=== PATIENT | female | born 1950 | race Caucasian/White ===

== ENCOUNTER 2020-12-30 17:42 | Inpatient (IN) ==
[2020-12-30] MEDS ORDERED: Acetaminophen 325 MG TABLET PO PRN (19:46)
[2020-12-30] MEDS ORDERED: D5% in Water 1,000 ML IVC PRN (19:46)
[2020-12-30] MEDS ORDERED: Dextrose Gel 15 GM/37.5 ML TUBE PO PRN ×2 (19:46)
[2020-12-30] MEDS ORDERED: *HR* Dextrose 50 % in Water (Syg) 50 ML SYRINGE IVP PRN (19:46)
[2020-12-30] MEDS: Apixaban 5 MG TABLET PO SCH (20:41)
[2020-12-30] MEDS: Insulin LISPRO 300 UNITS/3 ML VIAL SUBQ SCH (20:41)
[2020-12-31] MEDS: Apixaban 5 MG TABLET PO SCH ×2 (04:16→16:34)
[2020-12-31 06:09] LABS: Basophils # 0.1 K/mcL (0.0-0.2); Basophils % 0.6 %; Eosinophils # 0.3 K/mcL (0.0-0.6); Eosinophils % 2.8 %; Hematocrit 29.4 % (35.3-44.9); Hemoglobin 8.5 g/dL (11.5-15.4); Immature Granulocytes % 0.4 % (0-4); Lymphocytes # 2.1 K/mcL (0.6-4.6); Lymphocytes % 22.9 %; Mean Corpuscular HGB Conc 28.9 g/dL (31.6-35.5); Mean Corpuscular Hemoglobin 21.9 pg (28.0-33.3); Mean Corpuscular Volume 75.6 fL (83.0-100.0); Mean Platelet Volume 10.2 fL (9.4-12.4); Monocytes # 0.8 K/mcL (0.0-1.3); Neutrophils # 6.1 K/mcL (1.6-8.9); Platelet Count 568 K/mcL (140-400); Red Blood Count 3.89 M/mcL (3.82-4.97); Red Cell Distribution Width 26.4 % (11.5-14.5); Segmented Neutrophils % 65.3 %; White Blood Count 9.3 K/mcL (4.3-11.1)
[2020-12-31 06:24] LABS: BUN/Creatinine Ratio 20 (6-26); Blood Urea Nitrogen 10 mg/dL (8-23); Calcium 8.6 mg/dL (8.6-10.3); Carbon Dioxide 29 mEq/L (23-29); Chloride 101 mEq/L (98-107); Glucose 165 mg/dL (70-105); Osmolality,Calculated 285 (280-300); Potassium 4.3 mEq/L (3.5-5.1); Sodium 136 mEq/L (136-145); eGFR For African Americans > 60 (> 60); eGFR For Non-African Americans > 60 (> 60)
[2020-12-31 07:37] LABS: Hypochromasia Present (Not Present)
[2020-12-31 07:38] LABS: Microcytosis Present (Not Present)
[2020-12-31] MEDS: amLODIPine 5 MG TABLET PO SCH (08:21)
[2020-12-31] MEDS: *HR* GlipiZIDE XL (24 HR) 10 MG TABLET PO SCH (08:28)
[2020-12-31] MEDS: Insulin LISPRO 300 UNITS/3 ML VIAL SUBQ SCH ×4 (08:28→20:52)
[2020-12-31] MEDS: *HR* Metformin 500 MG TABLET PO SCH ×2 (08:28→16:35)
[2020-12-31] MEDS: Linagliptin [Tradjenta] 5 MG Tablet PO SCH (08:29)
[2021-01-01] MEDS: Apixaban 5 MG TABLET PO SCH ×2 (04:56→17:11)
[2021-01-01] MEDS: Insulin LISPRO 300 UNITS/3 ML VIAL SUBQ SCH ×4 (08:27→22:30)
[2021-01-01] MEDS: amLODIPine 5 MG TABLET PO SCH (08:27)
[2021-01-01] MEDS: Linagliptin [Tradjenta] 5 MG Tablet PO SCH (08:28)
[2021-01-01] MEDS: *HR* GlipiZIDE XL (24 HR) 10 MG TABLET PO SCH (08:35)
[2021-01-01] MEDS: *HR* Metformin 500 MG TABLET PO SCH ×2 (08:35→16:34)
[2021-01-02] MEDS: Apixaban 5 MG TABLET PO SCH ×2 (04:42→16:48)
[2021-01-02 07:17] LABS: Basophils # 0.1 K/mcL (0.0-0.2); Basophils % 0.8 %; Eosinophils # 0.3 K/mcL (0.0-0.6); Eosinophils % 3.3 %; Hemoglobin 8.7 g/dL (11.5-15.4); Immature Granulocytes % 0.4 % (0-4); Lymphocytes # 2.2 K/mcL (0.6-4.6); Lymphocytes % 23.5 %; Mean Corpuscular Volume 75.8 fL (83.0-100.0); Mean Platelet Volume 10.3 fL (9.4-12.4); Monocytes # 0.9 K/mcL (0.0-1.3); Monocytes % 9.3 %; Neutrophils # 5.8 K/mcL (1.6-8.9); Platelet Count 573 K/mcL (140-400); Red Blood Count 3.96 M/mcL (3.82-4.97); Red Cell Distribution Width 26.1 % (11.5-14.5); Segmented Neutrophils % 62.7 %; White Blood Count 9.3 K/mcL (4.3-11.1)
[2021-01-02 07:32] LABS: Chol/HDL Ratio 5.1 (0-4.9)
[2021-01-02] MEDS: Insulin LISPRO 300 UNITS/3 ML VIAL SUBQ SCH ×4 (08:03→19:59)
[2021-01-02] MEDS: *HR* Metformin 500 MG TABLET PO SCH ×2 (08:20→16:48)
[2021-01-02] MEDS: Linagliptin [Tradjenta] 5 MG Tablet PO SCH (08:20)
[2021-01-02] MEDS: amLODIPine 5 MG TABLET PO SCH (08:20)
[2021-01-02] MEDS: *HR* GlipiZIDE XL (24 HR) 10 MG TABLET PO SCH (08:21)
[2021-01-02 19:13] LABS: % Iron Saturation 4 % (15-50); Iron 12 mcg/dL (50-170); Transferrin 235 mg/dL (203-362)
[2021-01-02 22:18] LABS: Folate 17.6 ng/mL (3.0-16.0)
[2021-01-03 04:48] LABS: Basophils # 0.1 K/mcL (0.0-0.2); Basophils % 0.8 %; Eosinophils # 0.3 K/mcL (0.0-0.6); Eosinophils % 3.6 %; Hematocrit 30.5 % (35.3-44.9); Hemoglobin 8.9 g/dL (11.5-15.4); Immature Granulocytes % 0.4 % (0-4); Lymphocytes # 2.1 K/mcL (0.6-4.6); Lymphocytes % 23.2 %; Mean Corpuscular HGB Conc 29.2 g/dL (31.6-35.5); Mean Corpuscular Hemoglobin 22.2 pg (28.0-33.3); Mean Corpuscular Volume 76.1 fL (83.0-100.0); Mean Platelet Volume 10.8 fL (9.4-12.4); Monocytes # 0.8 K/mcL (0.0-1.3); Monocytes % 8.4 %; Neutrophils # 5.7 K/mcL (1.6-8.9); Platelet Count 606 K/mcL (140-400); Red Blood Count 4.01 M/mcL (3.82-4.97); Red Cell Distribution Width 25.5 % (11.5-14.5); Segmented Neutrophils % 63.6 %
[2021-01-03 04:54] LABS: Anisocytosis 1+ (Not Present); Platelet Estimate Increased (Normal)
[2021-01-03 05:01] LABS: BUN/Creatinine Ratio 23 (6-26); Blood Urea Nitrogen 11 mg/dL (8-23); Carbon Dioxide 27 mEq/L (23-29); Chloride 104 mEq/L (98-107); Glucose 122 mg/dL (70-105); Osmolality,Calculated 289 (280-300); Potassium 4.4 mEq/L (3.5-5.1); Sodium 139 mEq/L (136-145); eGFR For African Americans > 60 (> 60); eGFR For Non-African Americans > 60 (> 60)
[2021-01-03] MEDS: Apixaban 5 MG TABLET PO SCH ×2 (05:09→16:53)
[2021-01-03] MEDS: Insulin LISPRO 300 UNITS/3 ML VIAL SUBQ SCH ×4 (07:38→19:47)
[2021-01-03] MEDS: Linagliptin [Tradjenta] 5 MG Tablet PO SCH (07:59)
[2021-01-03] MEDS: *HR* Metformin 500 MG TABLET PO SCH ×2 (08:00→16:54)
[2021-01-03] MEDS: *HR* GlipiZIDE XL (24 HR) 10 MG TABLET PO SCH (08:00)
[2021-01-03] MEDS: amLODIPine 5 MG TABLET PO SCH (08:00)
[2021-01-03] MEDS ORDERED: Iron Sucrose Complex 250 MG in 0.9 % Sodium Chloride 250 ML IVPB SCH (09:00)
[2021-01-04] MEDS: Apixaban 5 MG TABLET PO SCH ×2 (04:51→16:58)
[2021-01-04 05:21] LABS: Basophils # 0.1 K/mcL (0.0-0.2); Basophils % 0.9 %; Eosinophils # 0.3 K/mcL (0.0-0.6); Eosinophils % 3.3 %; Hematocrit 31.5 % (35.3-44.9); Hemoglobin 9.1 g/dL (11.5-15.4); Immature Granulocytes % 0.6 % (0-4); Lymphocytes # 2.8 K/mcL (0.6-4.6); Lymphocytes % 26.5 %; Mean Corpuscular HGB Conc 28.9 g/dL (31.6-35.5); Mean Corpuscular Volume 76.1 fL (83.0-100.0); Mean Platelet Volume 10.8 fL (9.4-12.4); Monocytes # 0.9 K/mcL (0.0-1.3); Neutrophils # 6.2 K/mcL (1.6-8.9); Platelet Count 573 K/mcL (140-400); Red Blood Count 4.14 M/mcL (3.82-4.97); Red Cell Distribution Width 25.2 % (11.5-14.5); Segmented Neutrophils % 59.7 %; White Blood Count 10.4 K/mcL (4.3-11.1)
[2021-01-04 05:25] LABS: Anisocytosis 1+ (Not Present); Hypochromasia Present (Not Present); Platelet Estimate Increased (Normal)
[2021-01-04 05:33] LABS: BUN/Creatinine Ratio 15 (6-26); Blood Urea Nitrogen 8 mg/dL (8-23); Calcium 9.2 mg/dL (8.6-10.3); Carbon Dioxide 25 mEq/L (23-29); Chloride 104 mEq/L (98-107); Glucose 75 mg/dL (70-105); Osmolality,Calculated 285 (280-300); Potassium 4.5 mEq/L (3.5-5.1); Sodium 139 mEq/L (136-145); eGFR For African Americans > 60 (> 60); eGFR For Non-African Americans > 60 (> 60)
[2021-01-04] MEDS: Insulin LISPRO 300 UNITS/3 ML VIAL SUBQ SCH ×4 (07:37→19:59)
[2021-01-04] MEDS: *HR* GlipiZIDE XL (24 HR) 10 MG TABLET PO SCH (08:03)
[2021-01-04] MEDS: amLODIPine 5 MG TABLET PO SCH (08:03)
[2021-01-04] MEDS: *HR* Metformin 500 MG TABLET PO SCH ×2 (08:03→16:58)
[2021-01-04] MEDS: Linagliptin [Tradjenta] 5 MG Tablet PO SCH (08:03)
[2021-01-04] MEDS: Iron Sucrose Complex 250 MG in 0.9 % Sodium Chloride 250 ML IVPB SCH (16:58)
[2021-01-05] MEDS: Apixaban 5 MG TABLET PO SCH ×2 (05:22→17:20)
[2021-01-05 06:01] LABS: Basophils # 0.1 K/mcL (0.0-0.2); Basophils % 0.9 %; Eosinophils # 0.3 K/mcL (0.0-0.6); Eosinophils % 3.3 %; Hemoglobin 8.7 g/dL (11.5-15.4); Immature Granulocytes % 0.4 % (0-4); Lymphocytes # 2.3 K/mcL (0.6-4.6); Lymphocytes % 23.6 %; Mean Corpuscular Hemoglobin 21.9 pg (28.0-33.3); Mean Corpuscular Volume 75.6 fL (83.0-100.0); Mean Platelet Volume 11.1 fL (9.4-12.4); Monocytes # 0.9 K/mcL (0.0-1.3); Monocytes % 8.7 %; Neutrophils # 6.3 K/mcL (1.6-8.9); Platelet Count 593 K/mcL (140-400); Red Blood Count 3.97 M/mcL (3.82-4.97); Red Cell Distribution Width 25.8 % (11.5-14.5); Segmented Neutrophils % 63.1 %; White Blood Count 9.9 K/mcL (4.3-11.1)
[2021-01-05 06:17] LABS: BUN/Creatinine Ratio 20 (6-26); Blood Urea Nitrogen 9 mg/dL (8-23); Carbon Dioxide 27 mEq/L (23-29); Chloride 105 mEq/L (98-107); Glucose 73 mg/dL (70-105); Osmolality,Calculated 285 (280-300); Potassium 4.2 mEq/L (3.5-5.1); Sodium 139 mEq/L (136-145); eGFR For African Americans > 60 (> 60); eGFR For Non-African Americans > 60 (> 60)
[2021-01-05] MEDS: Insulin LISPRO 300 UNITS/3 ML VIAL SUBQ SCH ×4 (07:53→19:38)
[2021-01-05] MEDS: *HR* Metformin 500 MG TABLET PO SCH ×2 (07:57→17:19)
[2021-01-05] MEDS: *HR* GlipiZIDE XL (24 HR) 10 MG TABLET PO SCH (07:57)
[2021-01-05] MEDS: amLODIPine 5 MG TABLET PO SCH (07:57)
[2021-01-05] MEDS: Linagliptin [Tradjenta] 5 MG Tablet PO SCH (07:58)
[2021-01-05] MEDS: Iron Sucrose Complex 250 MG in 0.9 % Sodium Chloride 250 ML IVPB SCH (17:19)
[2021-01-05 19:31] VITALS: RESP 18
[2021-01-06] MEDS: Apixaban 5 MG TABLET PO SCH (06:01)
[2021-01-06 08:14] VITALS: BP 146/69; PULSE 77; TEMP 97.4
[2021-01-06] MEDS: Insulin LISPRO 300 UNITS/3 ML VIAL SUBQ SCH ×2 (08:34→12:16)
[2021-01-06] MEDS: *HR* GlipiZIDE XL (24 HR) 10 MG TABLET PO SCH (08:38)
[2021-01-06] MEDS: amLODIPine 5 MG TABLET PO SCH (08:38)
[2021-01-06] MEDS: *HR* Metformin 500 MG TABLET PO SCH (08:38)
[2021-01-06] MEDS: Linagliptin [Tradjenta] 5 MG Tablet PO SCH (08:54)
[2021-01-06 10:38] VITALS: O2SAT 94
== END 2021-01-06 16:00 | disposition home or self-care (01) | DRG 945 ==
LOC: INPGRE 18:32
PROVIDERS: ADMIT Family Medicine; ATTEND Family Medicine